=== PATIENT | male | born 1945 ===

== ENCOUNTER → 2020-08-31 | Outpatient (CLI) | payer MEDICARE | END | disposition home or self-care (01) | LOC: PLD 11:30 → LAB SHORT 11:30 | DX: N30.01 Acute cystitis with hematuria (principal) | CPT/HCPCS: 87077; 87086; 87186 ==

== ENCOUNTER → 2022-03-01 | Outpatient (CLI) | payer MEDICARE ==
[2022-03-01 19:27] LABS: BASOPHILS ABSOLUTE AUTO 0.08 K/mm3 (0.00-0.23); BASOPHILS PERCENT AUTO 1 % (0-2); EOSINOPHILS ABSOLUTE AUTO 0.24 K/mm3 (0.00-0.68); EOSINOPHILS PERCENT AUTO 4 % (0-6); Hematocrit 38.5 % (37.0-53.0); Hemoglobin 13.6 g/dL (13.5-17.5); IMMATURE GRAN ABSOLUTE AUTO 0.01 K/mm3 (0.00-0.10); IMMATURE GRAN PERCENT AUTO 0 % (0-1); LYMPHOCYTES ABSOLUTE AUTO 1.67 K/mm3 (0.84-5.20); LYMPHOCYTES PERCENT AUTO 27 % (21-46); MONOCYTES ABSOLUTE AUTO 0.51 K/mm3 (0.16-1.47); MONOCYTES PERCENT AUTO 8 % (4-13); Mean Corpuscular HGB 30.6 pg (26.0-34.0); Mean Corpuscular HGB Conc 35.3 g/dL (31.5-36.5); Mean Corpuscular Volume 87 fL (80-100); Mean Platelet Volume 9.4 fL (9.1-12.4); NEUTROPHILS ABSOLUTE AUTO 3.66 K/mm3 (1.96-9.15); NEUTROPHILS PERCENT AUTO 59 % (41-73); Platelet Count 189 K/mm3 (150-400); RDW Coefficient Variation 12.7 % (11.7-14.2); RDW Standard Deviation 40.2 fL (35.1-46.3); Red Blood Cell Count 4.44 M/mm3 (4.30-5.90); White Blood Cell Count 6.17 K/mm3 (4.00-11.30)
[2022-03-01 19:58] LABS: Alanine Aminotransfer (ALT/SGP 27 U/L (12-78); Albumin, Blood 4.1 g/dL (3.4-5.0); Albumin/Globulin Ratio 1.6 (0.8-1.8); Alk Phos 53 U/L (50-136); Anion Gap 4 mmol/L (6-16); Aspartate Aminotrans (AST/SGOT 15 U/L (12-37); Bilirubin, Total 1.2 mg/dL (0.1-1.0); Blood Urea Nitrogen 13 mg/dL (8-24); Bun/Creatinine Ratio 13.5 (12.0-20.0); CO2, Blood 27 mmol/L (21-32); Calcium, Blood 8.9 mg/dL (8.5-10.1); Chloride, Blood 105 mmol/L (98-108); Creatinine, Blood 0.96 mg/dL (0.60-1.20); Globulin, Blood 2.5 g/dL (2.2-4.0); Glomerular Filtration Rate 83 (60-); Glucose, Blood 132 mg/dL (70-99); PSA, %Free 24.1 %; PSA, Free 0.671 ng/mL; Potassium, Blood 3.8 mmol/L (3.5-5.5); Sodium, Blood 136 mmol/L (136-145); Total Protein, Blood 6.6 g/dL (6.4-8.2)
[2022-03-02 09:36] LABS: CHOL/HDL RATIO 2.4; Cholesterol 132 mg/dL (50-200); HDL Cholesterol 56 mg/dL (>39); Low Density Lipoprotein Chol 58 mg/dL (0-110); Triglycerides 88 mg/dL (30-160); Very Low Density Lipoprot Chol 17 mg/dL (6-32)
== END ==
LOC: LAB SHORT 18:36 → LAB 18:36
PROVIDERS: Student in an Organized Health Care Education/Training Program
DX: Z13.6 Encounter for screening for cardiovascular disorders (principal); I35.0 Nonrheumatic aortic (valve) stenosis; N40.0 Benign prostatic hyperplasia without lower urinary tract symptoms; R03.0 Elevated blood-pressure reading, without diagnosis of hypertension; I48.91 Unspecified atrial fibrillation
CPT/HCPCS: 80053; 80061; 84153; 84154; 84443; 85025

== ENCOUNTER → 2022-06-28 | Outpatient (CLI) | payer MEDICARE | END | disposition home or self-care (01) | LOC: LAB SHORT 18:38 → LAB 18:38 | DX: R30.0 Dysuria (principal) | CPT/HCPCS: 87077; 87086; 87186 ==

== ENCOUNTER 2025-02-26 07:08 | Day surgery (SDC) | payer MEDICARE ==
[2025-02-26] VITALS (15 sets, daily range): BP systolic 109–170; BP diastolic 71–90
[~2025-02-26] VITALS: Ht 170.2 cm; Wt 105.0 kg
[~2025-02-26 07:08] MED LIST: ATOR40TA PO; Aspir 8181 MG PO; DOXA4 PO; FINA5 PO; FURO20 PO; GLUCHON PO; K-TAB ER20 ME2 PO; METO50ER PO; OMEGA-3-FISH O1 EAC3 PO; RENAL MULTIVIT1 EACH PO
[2025-02-26] MEDS ORDERED: Verapamil HCL 2.5 MG/ML 2ML Injection ONE (07:43)
[2025-02-26] MEDS ORDERED: FentaNYL Citrate 50 MCG/ML 2 ML Injection ONE (07:43)
[2025-02-26] MEDS ORDERED: NS 1,000 ML IV ONE ×2 (07:44→07:45)
[2025-02-26] MEDS ORDERED: Midazolam HCl 1MG / ML 2ML Vial ONE (07:44)
[2025-02-26] MEDS ORDERED: Heparin Sodium 1000 Units/ML 10ML MDV ONE (07:44)
[2025-02-26] MEDS ORDERED: NS 250 ML IV ONE (07:44)
[2025-02-26] MEDS ORDERED: Nitroglycerin 2 MG/20 ML BTL ONE (07:45)
[2025-02-26] MEDS ORDERED: Phenylephrine HCl 100 MCG/ML-NS 10MLSYR (1MG/10ML) ONE (09:02)
--- NOTE | 2025-02-26 10:10 | NUR ---
PT BACK FROM PROCEDURE. R GROIN SITE AND R RADIAL SITE STABLE. PULSES 2+ BILAT FOR DP/PT. REFERRAL CALLED OVER TO THE CLINIC.
--- NOTE | 2025-02-26 12:14 | NUR ---
4 CC AIR RELEASED FROM TR BAND IN TOTAL, NO BLEEDING NOTED.
--- NOTE | 2025-02-26 12:23 | NUR ---
R RADIAL SITE STARTED BLEEDING, 4 CC AIR REPLACED IN TR BAND. WILL CONTINUE TO MONITOR. PT R GROIN SITE STABLE.
--- NOTE | 2025-02-26 12:56 | NUR ---
PT EATING LUNCH AT THIS TIME.
--- NOTE | 2025-02-26 13:07 | NUR ---
2 CC OF AIR REMVOED FROM RIGHT RADIAL TR BAND. SITE C/D/I SOFT/NONTENDER, NO EVIDENCE OF BLEEDING. GOOD PLEUTH WAVE. PATIENT DNEYING ANY PAIN. VSS ON RA. PATIENT SITTING UP IN BED TOLERATING PO INTAKE WELL.
--- NOTE | 2025-02-26 13:30 | NUR ---
Care assumed of patient. Patient denies complaints. Right TR band site reviewed, old blood present, site soft, w/o hematoma, swelling, bleeding, tenderness. 2cc air removed w/o issue. Right groin site reviewed, site WNL, soft non-tender. Patient up to chair, martinez well. VSS. Patient tolerated lunch/fluids.
--- NOTE | 2025-02-26 15:17 | NUR ---
ALL AIR FROM TR BAND REMOVED BY 1345, SITE STABLE W/O ISSUES. RIGHT GROIN SITE REMAINED STABLE W/O ISSUES WELL. VERBAL AND WRITTEN DISCHARGE INSTRUCTIONS GIVEN TO PATIENT AND WITH CLEAR UNDERSTANDING AT 1500. TR BAND REMOVED AND WRIST CLEANED, SMALL DRSG PLACED. WRIST IMMOBILIZER PLACED. BOTH WRIST AND RIGHT GROIN CHECKED PRIOR TO DISCHARGE AND REMAINED STABLE W/O CHANGE. PATIENT UP TO DRESS W/O ISSUES, PATIENT DENIES COMPLAINTS. PATIENT DISCHARGED IN STABLE CONDITION AT 1508. PATIENT ESCORTED OUT VIA WHEELCHAIR AND CARE TUNRED OVER TO PATIENTS .
== END 2025-02-26 23:00 | disposition home or self-care (01) ==
LOC: MHTC 07:08
DX: I35.0 Nonrheumatic aortic (valve) stenosis (principal); I25.10 Atherosclerotic heart disease of native coronary artery without angina pectoris; I47.20 Ventricular tachycardia, unspecified; R94.31 Abnormal electrocardiogram [ECG] [EKG]; I48.0 Paroxysmal atrial fibrillation; I11.0 Hypertensive heart disease with heart failure; I50.32 Chronic diastolic (congestive) heart failure; G47.33 Obstructive sleep apnea (adult) (pediatric); Z79.82 Long term (current) use of aspirin; Z79.899 Other long term (current) drug therapy; Z91.09 Other allergy status, other than to drugs and biological substances; Z90.49 Acquired absence of other specified parts of digestive tract
CPT/HCPCS: 76937; 85347; 92978; 92979; 93454; 99152; 99153; C1753; C1760; C1769; C1887; C1894; J0461; J1644; J2250; J2371; J3010; J7030; J7050; Q9967